=== PATIENT | female | born 1995 | race Caucasian/White ===

== ENCOUNTER 2020-05-19 10:38 | Emergency (ER) | payer OTHER ==
[~2020-05-19] VITALS: Ht 157.5 cm; Wt 127.7 kg
[~2020-05-19 10:38] MED LIST: [UNRECOGNIZED DRUG - OTHER]
--- NOTE | 2020-05-19 10:50 | PHYS DOC ---
Past History Past Medical History: Anxiety Past Surgical History: Tonsillectomy Smoking: Non-smoker Alcohol Use: None Drug Use: None Adult General Chief Complaint Chief Complaint: ABDOMINAL PAIN HPI HPI Patient is a 24-year-old female who presents for nausea vomiting diarrhea. Onset was approximately 8 hours ago without any known inciting event or trauma. Nothing known makes better, she tried taking Pepto-Bismol earlier this morning without significant relief. P.o. intake seems to aggravate nausea and abdominal cramping. Patient denies any actual pain but admits ongoing chills, nausea, approximately 6 episodes of nonbloody nonbilious emesis and 6 episodes of looser than usual stools. Patient does admit concerning p.o. ingestion, 8 a hot dog from [employer] approximately 12 hours ago. She has no abdominal surgeries in the past, no other GI issues that she is aware of. Denies fever Review of Systems Review of Systems Fourteen body systems of review of systems have been reviewed. See HPI for pertinent positives and negative responses, other magana all other systems are negative, non-pertinent or non-contributory Allergies Allergies Allergies Coded Allergies Type Severity Reaction Last Updated Verified No Known Drug Allergies 05/24/13 No Physical Exam Physical Exam Constitutional: Well developed, well nourished, no acute distress, non-toxic appearance. HENT: Normocephalic, atraumatic, bilateral external ears normal, oropharynx moist, no oral exudates, nose normal. Eyes: PERRLA, EOMI, conjunctiva normal, no discharge. Neck: Normal range of motion, no tenderness, supple, no stridor. Cardiovascular: Heart rate regular, sinus rhythm, no murmurs rubs or gallops Lungs & Thorax: Bilateral breath sounds clear to auscultation Abdomen: Bowel sounds normal, soft, no tenderness, no masses, no pulsatile masses. Nonsurgical abdomen, no peritoneal signs Skin: Warm, dry, no erythema, no rash. Back: No tenderness, no CVA tenderness. Extremities: No tenderness, no cyanosis, no clubbing, ROM intact, no edema. Neurologic: Alert and oriented X 3, grossly normal motor & sensory function, no focal deficits noted. Psychologic: Affect normal, judgement normal, mood normal. Current Patient Data Vital Signs Vital Signs Date Time Temp Pulse Resp B/P (MAP) Pulse Ox O2 Delivery O2 Flow Rate FiO2 05/19/20 11:00 97.7 87 18 111/51 (71) 100 Room Air Vital Signs Date Time Temp Pulse Resp B/P (MAP) Pulse Ox O2 Delivery O2 Flow Rate FiO2 05/19/20 11:00 97.7 87 18 111/51 (71) 100 Room Air Lab Results Laboratory Tests Test 05/19/20 10:48 05/19/20 11:00 Urine Collection Type Unknown Urine Color Yellow Urine Clarity Hazy Urine pH 5.5 Urine Specific Muse >=1.030 Urine Protein Neg Urine Glucose (UA) Neg mg/dL Urine Ketones (Stick) Neg mg/dL Urine Blood Trace Urine Nitrite Neg Urine Bilirubin Neg Urine Urobilinogen Dipstick 0.2 mg/dL Urine Leukocyte Esterase Neg Urine RBC 3-5 /HPF Urine WBC 1-4 /HPF Urine Squamous Epithelial Cells Many /LPF Urine Bacteria Mod /HPF Urine Mucus Slight /LPF Urine Yeast Present /HPF White Blood Count 11.6 x10^3/uL Red Blood Count 4.42 x10^6/uL Hemoglobin 13.8 g/dL Hematocrit 42.0 % Mean Corpuscular Volume 95 fL Mean Corpuscular Hemoglobin 31 pg Mean Corpuscular Hemoglobin Concent 33 g/dL Red Cell Distribution Width 13.2 % Platelet Count 321 x10^3/uL Neutrophils (%) (Auto) 78 % Lymphocytes (%) (Auto) 16 % Monocytes (%) (Auto) 4 % Eosinophils (%) (Auto) 2 % Basophils (%) (Auto) 1 % Neutrophils # (Auto) 9.0 x10^3uL Lymphocytes # (Auto) 1.8 x10^3/uL Monocytes # (Auto) 0.5 x10^3/uL Eosinophils # (Auto) 0.2 x10^3/uL Basophils # (Auto) 0.1 x10^3/uL Bedside Urine HCG, Qualitative hcg negative Sodium Level 141 mmol/L Potassium Level 3.9 mmol/L Chloride Level 105 mmol/L Carbon Dioxide Level 25 mmol/L Anion Gap 11 Blood Urea Nitrogen 13 mg/dL Creatinine 0.8 mg/dL Estimated GFR (Cockcroft-Gault) 87.4 BUN/Creatinine Ratio 16 Glucose Level 122 mg/dL Calcium Level 8.9 mg/dL Total Bilirubin 0.4 mg/dL Aspartate Amino Transf (AST/SGOT) 17 U/L Alanine Aminotransferase (ALT/SGPT) 35 U/L Alkaline Phosphatase 69 U/L Total Protein 8.0 g/dL Albumin 3.9 g/dL Albumin/Globulin Ratio 1.0 Current Medications Medications (Trade) Dose Ordered Sig/Jerson Route PRN Reason Start Time Stop Time Status Last Admin Dose Admin Sodium Chloride 1,000 ml @ 1,000 mls/hr Q1H IV 05/19/20 11:15 05/19/20 12:14 05/19/20 11:17 Metoclopramide HCl (Reglan Vial) 10 mg 1X ONCE IVP 05/19/20 11:15 05/19/20 11:16 DC 05/19/20 11:16 EKG EKG [] Radiology/Procedures Radiology/Procedures [] Heart Score C/O Chest Pain: No HEART Score for Chest Pain: HEART Score for Chest Pain Response (Comments) Value History Slighlty/Non-Suspicious 0 Age < 45 0 Risk Factors 1 or 2 Risk Factors 1 Total 1 Risk Factors: Risk Factors: DM, Current or recent (<one month) smoker, HTN, HLP, family history of CAD, obesity. Risk Scores: Risk Factors: DM, Current or recent (<one month) smoker, HTN, HLP, family history of CAD, obesity. Course & Med Decision Making Course & Med Decision Making Discussed most likely diagnosis of gastroenteritis versus other likely self- limiting condition. Patient responded to IV fluid rehydration and IV Reglan use, reports significant improvement in symptoms Discussed and disclosed all ER studies ordered, no indication for further diagnostic work-up in ER setting Joint decision for discharge home with new prescription for Reglan and supportive care advised. Patient has good access to PCP and can be seen this upcoming week for repeat evaluation in outpatient setting Strict return precautions discussed with good understanding by patient, all questions and concerns addressed prior to departure Dragon Disclaimer Dragon Disclaimer This electronic medical record was generated, in whole or in part, using a voice recognition dictation system. Departure Departure: Impression: Primary Impression: Nausea, vomiting, and diarrhea Disposition: 01 DC HOME SELF CARE/HOMELESS Condition: IMPROVED Referrals: VICKI HUMPHREY MD (PCP) Patient Instructions: Nausea and Vomiting Additional Instructions: You were seen for nausea, vomiting and diarrhea. You most likely have a viral illness which should resolve in the next few days to a week. As disclose, your ER work-up was grossly nonconcerning, there is no indication for further ER work-up. With that said, I highly recommend you call your primary care physician first thing Thursday to review your ER visit today and discuss next steps of care as it would be beneficial for repeat evaluation this upcoming week to ensure continued improvement of symptoms. You should return to the ED if you develop abdominal pain, fever > 100.3, black/bloody stools, black/bloody vomiting, cannot keep water down, or any other new or concerning symptoms. Scripts Metoclopramide Hcl (REGLAN) 10 Mg Tablet 1 TAB PO TID for nausea for 7 Days, #21 TAB 0 Refills before food and bedtime Prov: JARRETT JUÁREZ DO 05/19/20 JARRETT JUÁREZ DO May 19, 2020 10:49
[2020-05-19 11:00] VITALS: BP 111/51
[2020-05-19] MEDS ORDERED: METOCLOPRAMIDE HCL 10 MG/2 ML VIAL. IVP ONE (11:15)
[2020-05-19] MEDS ORDERED: IV NORMAL SALINE 1,000ML 1,000 ML IV SCH (11:15)
[2020-05-19 11:16] LABS: BASO # 0.1 x10^3/uL (0.0-0.2); BASO % 1 % (0-3); EOS # 0.2 x10^3/uL (0.0-0.7); EOS % 2 % (0-3); HEMOGLOBIN 13.8 g/dL (12.0-15.5); LYMPH # 1.8 x10^3/uL (1.0-4.8); LYMPH % 16 % (24-48); MEAN CORPUSCULAR HEMOGLOBIN 31 pg (25-35); MEAN CORPUSCULAR HGB CONC 33 g/dL (31-37); MEAN CORPUSCULAR VOLUME 95 fL (79-100); MONO # 0.5 x10^3/uL (0.0-1.1); MONO % 4 % (0-9); NEUT % 78 % (31-73); PLATELET COUNT 321 x10^3/uL (140-400); RED BLOOD COUNT 4.42 x10^6/uL (3.50-5.40); RED CELL DISTRIBUTION WIDTH 13.2 % (11.5-14.5); WHITE BLOOD COUNT 11.6 x10^3/uL (4.0-11.0)
[2020-05-19 11:21] LABS: CALCIUM 8.9 mg/dL (8.5-10.1); CREATININE 0.8 mg/dL (0.6-1.0); GFR 87.4; POTASSIUM 3.9 mmol/L (3.5-5.1)
[2020-05-19 11:27] LABS: ALBUMIN 3.9 g/dL (3.4-5.0); TOTAL BILIRUBIN 0.4 mg/dL (0.2-1.0)
[2020-05-19 11:38] LABS: COLOR,URINE YELLOW
[2020-05-19 11:39] LABS: BACTERIA,URINE MOD /HPF (0-FEW); BILIRUBIN,URINE NEG (NEG); CLARITY,URINE HAZY; GLUCOSE,URINE NEG (NEG); NITRITE,URINE NEG (NEG); SQUAMOUS EPITHELIAL CELL,UR MANY /LPF; UROBILINOGEN,URINE 0.2 mg/dL (0.2 mg/dL); YEAST,URINE PRESENT /HPF
[2020-05-19] MEDS ORDERED: METO10TA81 PO (12:00)
== END 2020-05-19 12:14 | disposition home or self-care (01) ==
LOC: ER 10:38
DX: R11.2 Nausea with vomiting, unspecified (principal); R19.7 Diarrhea, unspecified; R10.9 Unspecified abdominal pain
CPT/HCPCS: 36415; 80053; 81001; 81025; 85025; 87086; 96361; 96374; 99283; J2765; J7030